=== PATIENT | female | born 1995 | race Two or more races ===

== ENCOUNTER 2019-03-13 10:53 | Emergency (ER) | payer OTHER ==
[~2019-03-13] VITALS: Ht 167.6 cm; Wt 57.2 kg
[2019-03-13 11:08] VITALS: BP 112/45
[2019-03-13 11:34] LABS: BASO % 0 % (0-3); EOS # 0.1 x10^3/uL (0.0-0.7); EOS % 1 % (0-3); HEMATOCRIT 36.9 % (36.0-47.0); LYMPH # 1.6 x10^3/uL (1.0-4.8); LYMPH % 31 % (24-48); MEAN CORPUSCULAR HEMOGLOBIN 28 pg (25-35); MEAN CORPUSCULAR HGB CONC 33 g/dL (31-37); MEAN CORPUSCULAR VOLUME 86 fL (79-100); MONO # 0.3 x10^3/uL (0.0-1.1); MONO % 5 % (0-9); NEUT # 3.2 x10^3uL (1.8-7.7); NEUT % 62 % (31-73); PLATELET COUNT 254 x10^3/uL (140-400); RED BLOOD COUNT 4.28 x10^6/uL (3.50-5.40); RED CELL DISTRIBUTION WIDTH 14.5 % (11.5-14.5); WHITE BLOOD COUNT 5.1 x10^3/uL (4.0-11.0)
--- NOTE | 2019-03-13 12:09 | RAD ---
OB <14 WKS History: Vaginal bleeding. 7 weeks . Comparison: None. Technique: Grayscale and color Doppler imaging of the pelvis was performed using transabdominal technique. Findings: The uterus measures 8.9 x 5.1 x 6.3 cm in length. Small gestational sac within the upper endometrial canal measures 0.67 cm. Estimated gestational age by ultrasound 5 weeks 3 days. No pole is identified. No yolk sac. Right ovary measures 3.4 x 2.2 x 3.2 cm and is unremarkable. Left ovary measures 3.4 x 2.5 x 3.9 cm. Dominant left ovarian follicle.. No adnexal masses are seen. Small amount of posterior cul-de-sac fluid, likely physiologic. IMPRESSION: 1. Small intrauterine gestational sac with estimated gestational age 5 weeks 3 days. No pole, likely related to early . Recommend short-term interval ultrasound follow-up and correlation with serial beta-hCGs. Electronically signed by: Oswaldo Hancock DO (03/13/2019 12:07 PM) [facility]
--- NOTE | 2019-03-13 13:22 | PHYS DOC ---
Past History Past Medical History: No Pertinent History Past Surgical History: No Surgical History Alcohol Use: None Drug Use: None Adult General Chief Complaint Chief Complaint: VAGINAL BLEEDING HPI HPI Patient is a 22-year-old female presenting with vaginal spotting. Has had 2 episodes of vaginal spotting one was more significant amount of couple of days ago and this morning he noticed spotting when she was wiping. No abdominal pain she is worried because she is about 6 weeks last menstrual period January 28 and she notes 2 prior miscarriages. She is B+ she tells me Review of Systems Review of Systems Constitutional: Denies fever or chills [] Eyes: Denies change in visual acuity, redness, or eye pain [] HENT: Denies nasal congestion or sore throat [] Respiratory: Denies cough or shortness of breath [] Musculoskeletal: Denies back pain or joint pain [] Integument: Denies rash or skin lesions [] Neurologic: Denies headache, focal weakness or sensory changes [] Endocrine: Denies polyuria or polydipsia [] All other systems were reviewed and found to be within normal limits, except as documented in this note. Allergies Allergies Allergies Coded Allergies Type Severity Reaction Last Updated Verified No Known Drug Allergies 03/13/19 No Physical Exam Physical Exam Constitutional: Well developed, well nourished, no acute distress, non-toxic appearance. [] HENT: Normocephalic, atraumatic, bilateral external ears normal, oropharynx moist, no oral exudates, nose normal. [] Eyes: PERRLA, EOMI, conjunctiva normal, no discharge. [] Neck: Normal range of motion, no tenderness, supple, no stridor. [] Cardiovascular:Heart rate regular rhythm, no murmur [] Lungs & Thorax: Bilateral breath sounds clear to auscultation [] Abdomen: Bowel sounds normal, soft, no tenderness, no masses, no pulsatile masses. [] Skin: Warm, dry, no erythema, no rash. [] Back: No tenderness, no CVA tenderness. [] Extremities: No tenderness, no cyanosis, no clubbing, ROM intact, no edema. [] Neurologic: Alert and oriented X 3, normal motor function, normal sensory function, no focal deficits noted. [] Psychologic: Affect normal, judgement normal, mood normal. [] Current Patient Data Vital Signs Vital Signs Date Time Temp Pulse Resp B/P (MAP) Pulse Ox O2 Delivery O2 Flow Rate FiO2 03/13/19 11:08 98.1 70 16 100 Room Air eks . Pt staetd I am G4=P1. Pt stated I have had two mischarges. Pt stated I am having some vaginavl bleeding and spotting. Distress * Mild Temperature (Fahrenheit): * 98.1 degrees F (97.6-99.5) Patient Temperature * 98.1 degrees F (97.5-99.5) Temperature Source * Oral Blood Pressure Systolic * 112 mm Hg (100-140) Blood Pressure Diastolic * 45 mm Hg (60-100) L Blood Pressure Mean * 67 mm Hg Blood Pressure Location * Left Arm Blood Pressure Source * Automatic Cuff Pulse Rate * 70 beats per minute (60-90) Pulse Assessment Method * NIBP Respiratory Rate * 16 breaths per minute (12-24) Oxygen Delivery Method * Room Air Bedside Pulse Oximetry * 100 % Treatment Prior to Arrival * No Complaint of Pain * No Pain Scale Type * Numeric LOC Lab Results Laboratory Tests Test 03/13/19 11:19 White Blood Count 5.1 x10^3/uL (4.0-11.0) Red Blood Count 4.28 x10^6/uL (3.50-5.40) Hemoglobin 12.0 g/dL (12.0-15.5) Hematocrit 36.9 % (36.0-47.0) Mean Corpuscular Volume 86 fL (79-100) Mean Corpuscular Hemoglobin 28 pg (25-35) Mean Corpuscular Hemoglobin Concent 33 g/dL (31-37) Red Cell Distribution Width 14.5 % (11.5-14.5) Platelet Count 254 x10^3/uL (140-400) Neutrophils (%) (Auto) 62 % (31-73) Lymphocytes (%) (Auto) 31 % (24-48) Monocytes (%) (Auto) 5 % (0-9) Eosinophils (%) (Auto) 1 % (0-3) Basophils (%) (Auto) 0 % (0-3) Neutrophils # (Auto) 3.2 x10^3uL (1.8-7.7) Lymphocytes # (Auto) 1.6 x10^3/uL (1.0-4.8) Monocytes # (Auto) 0.3 x10^3/uL (0.0-1.1) Eosinophils # (Auto) 0.1 x10^3/uL (0.0-0.7) Basophils # (Auto) 0.0 x10^3/uL (0.0-0.2) Maternal Serum HCG Beta Subunit 6221 mIU/mL (0-6) H EKG EKG [] Radiology/Procedures Radiology/Procedures [] Impressions: IMPRESSION: 1. Small intrauterine gestational sac with estimated gestational age 5 weeks 3 days. No pole, likely related to early . Recommend short-term interval ultrasound follow-up and correlation with serial beta-hCGs. Electronically signed by: Odell Traylor DO (03/13/2019 12:07 PM) [facility] DICTATED AND SIGNED BY: ODELL TRAYLOR DO DATE: 03/13/19 1207 CC: SARAH FELIZ MD; PCP,UNKNOWN ~ Course & Med Decision Making Course & Med Decision Making Pertinent Labs and Imaging studies reviewed. (See chart for details) []23 old female presenting with vaginal spotting early first trimester noted the ultrasound and the beta results. Patient is very well-appearing hemodynamically stable benign abdominal examination recommended follow-up with gynecology within 3-5 days for repeat beta and ultrasound to confirm that this is a normal developing. Dragon Disclaimer Dragon Disclaimer This electronic medical record was generated, in whole or in part, using a voice recognition dictation system. Departure Departure: Impression: Primary Impression: Vaginal bleeding during Disposition: 01 HOME, SELF-CARE Condition: STABLE Patient Instructions: Vaginal Bleeding During , First Trimester Additional Instructions: please see your designer writer doctor for repeat ultrasound or blood work in 3-5 days. SARAH FELIZ MD Mar 13, 2019 13:22
== END 2019-03-13 12:27 | disposition home or self-care (01) ==
LOC: ER 10:53
DX: O46.91 Antepartum hemorrhage, unspecified, first trimester (principal); Z3A.01 Less than 8 weeks gestation of pregnancy
CPT/HCPCS: 36415; 76801; 84702; 85025; 99285-25

== ENCOUNTER 2019-03-28 07:40 | Emergency (ER) | payer OTHER ==
[~2019-03-28] VITALS: Ht 167.6 cm; Wt 56.2 kg
[2019-03-28 07:45] VITALS: BP 120/72
[2019-03-28] MEDS ORDERED: ONDANSETRON ODT 4 MG TAB.RAPDIS ONE (07:55)
[2019-03-28] MEDS ORDERED: ONDANSETRON ODT 4 MG TAB.RAPDIS PO ONE (08:00)
[2019-03-28 08:39] LABS: BACTERIA,URINE FEW /HPF (0-FEW); BILIRUBIN,URINE NEG (NEG); CLARITY,URINE HAZY; COLOR,URINE AMBER; GLUCOSE,URINE NEG (NEG); NITRITE,URINE NEG (NEG); RBC,URINE OCC /HPF (0-2); SQUAMOUS EPITHELIAL CELL,UR MOD /LPF; UROBILINOGEN,URINE 0.2 mg/dL (0.2 mg/dL)
[2019-03-28] MEDS ORDERED: ONDA4TAB12 PO (08:49)
--- NOTE | 2019-03-28 09:00 | PHYS DOC ---
Past History Past Medical History: No Pertinent History Past Surgical History: No Surgical History Alcohol Use: None Drug Use: None Adult General Chief Complaint Chief Complaint: VOMITING IN HPI HPI Patient is a 23 yo f p/w n/v/d. Vomiting profusely since midnight also had some diarrhea yesterday daughter was sick with the same symptoms patient is 7 weeks and has no fever. Did have some spotting on saw her doctor had ultrasound and everything looked good at that time. No further bleeding this morning patient describes a sensation of abdominal gurgling but no sharp pain Review of Systems Review of Systems Constitutional: Denies fever or chills [] Eyes: Denies change in visual acuity, redness, or eye pain [] HENT: Denies nasal congestion or sore throat [] Respiratory: Denies cough or shortness of breath [] Cardiovascular: Integument: Denies rash or skin lesions [] Neurologic: Denies headache, focal weakness or sensory changes [] All other systems were reviewed and found to be within normal limits, except as documented in this note. Current Medications Current Medications Current Medications Medications (Trade) Dose Ordered Sig/Soo Start Time Stop Time Status Last Admin Dose Admin Ondansetron HCl (Zofran Odt) 4 mg STK-MED ONCE 03/28/19 07:55 03/28/19 07:55 DC Allergies Allergies Allergies Coded Allergies Type Severity Reaction Last Updated Verified No Known Drug Allergies 03/13/19 No Physical Exam Physical Exam Constitutional: Well developed, well nourished, no acute distress, non-toxic appearance. [] HENT: Normocephalic, atraumatic, bilateral external ears normal, oropharynx moist, no oral exudates, nose normal. [] Eyes: PERRLA, EOMI, conjunctiva normal, no discharge. [] Neck: Normal range of motion, no tenderness, supple, no stridor. [] Pulmonary: Normal respiratory effort no increased work of breathing no obvious chest wall trauma Abdomen: Bowel sounds normal, soft, no tenderness, no masses, no pulsatile masses. [] Skin: Warm, dry, no erythema, no rash. [] Back: No tenderness, no CVA tenderness. [] Extremities: No tenderness, no cyanosis, no clubbing, ROM intact, no edema. [] Neurologic: Alert and oriented X 3, normal motor function, normal sensory function, no focal deficits noted. [] Psychologic: Affect normal, judgement normal, mood normal. [] Current Patient Data Vital Signs Vital Signs Date Time Temp Pulse Resp B/P (MAP) Pulse Ox O2 Delivery O2 Flow Rate FiO2 03/28/19 07:40 98.7 77 18 120/72 (88) 100 Room Air Lab Results Laboratory Tests Test 03/28/19 08:13 Urine Collection Type Unknown Urine Color Natalie Urine Clarity Hazy Urine pH 5.5 Urine Specific [place] >=1.030 Urine Protein Neg (NEG-TRACE) Urine Glucose (UA) Neg mg/dL (NEG) Urine Ketones (Stick) Neg mg/dL (NEG) Urine Blood Neg (NEG) Urine Nitrite Neg (NEG) Urine Bilirubin Neg (NEG) Urine Urobilinogen Dipstick 0.2 mg/dL (0.2 mg/dL) Urine Leukocyte Esterase Trace (NEG) Urine RBC Occ /HPF (0-2) Urine WBC 1-4 /HPF (0-4) Urine Squamous Epithelial Cells Mod /LPF Urine Bacteria Few /HPF (0-FEW) Urine Mucus Mod /LPF EKG EKG [] Radiology/Procedures Radiology/Procedures [] Course & Med Decision Making Course & Med Decision Making Pertinent Labs and Imaging studies reviewed. (See chart for details) []Patient was improved in the emergency room after oral Zofran urinalysis negative for infection vitals normal discharge in stable condition abdomen was benign and nontender Dragon Disclaimer Dragon Disclaimer This electronic medical record was generated, in whole or in part, using a voice recognition dictation system. Departure Departure: Impression: Primary Impression: Vomiting Disposition: 01 HOME, SELF-CARE Condition: STABLE Patient Instructions: Nausea and Vomiting, [id number] Scripts Ondansetron (ONDANSETRON ODT) 4 Mg Tab.rapdis 1 TAB PO PRN Q6-8HRS PRN for PAIN, #16 TAB Prov: SARAH FELIZ MD 03/28/19 SARAH FELIZ MD Mar 28, 2019 09:00
== END 2019-03-28 09:00 | disposition home or self-care (01) ==
LOC: ER 07:40
DX: O21.9 Vomiting of pregnancy, unspecified (principal); R19.7 Diarrhea, unspecified; Z3A.01 Less than 8 weeks gestation of pregnancy
CPT/HCPCS: 81001; 87086; 99283; Q0162

== ENCOUNTER 2020-11-30 16:34 | Emergency (ER) | payer OTHER ==
[~2020-11-30] VITALS: Ht 160 cm; Wt 56.8 kg
[~2020-11-30 16:34] MED LIST: ONDA4TAB12 PO
[2020-11-30 17:30] LABS: BILIRUBIN,URINE NEG (NEG); CLARITY,URINE HAZY; COLOR,URINE YELLOW; GLUCOSE,URINE NEG (NEG); NITRITE,URINE NEG (NEG)
[2020-11-30 17:33] LABS: BACTERIA,URINE 0 /HPF (0-FEW); RBC,URINE 0 /HPF (0-2); SQUAMOUS EPITHELIAL CELL,UR FEW /LPF; WBC,URINE 0 /HPF (0-4)
--- NOTE | 2020-11-30 17:47 | PHYS DOC ---
Past History Past Medical History: No Pertinent History (CANDACE DAMIAN APRN) Past Surgical History: Other Additional Past Surgical Histo: D&C (CANDACE DAMIAN APRN) Alcohol Use: None Drug Use: None (CANDACE DAMIAN APRN) General Adult EDM: Chief Complaint: VAGINAL BLEEDING HPI: HPI: Patient is a 25-year-old female who presents with vaginal bleeding while . Patient states that she took a test last week which was negative. "On Saturday started bleeding and he assumed I was only., But on Saturday the bleeding had quit so I took 2 more test which were both positive". "I also had quite a bit of cramping on Saturday". Last menstrual period was 10/21. G5, P2. Denies medical history. (CANDACE DAMIAN APRN) Review of Systems: Review of Systems: Constitutional: Denies fever and chills Eyes: Denies change in visual acuity HENT: Denies nasal congestion or sore throat Respiratory: Denies cough or shortness of breath Cardiovascular: Denies chest pain or edema GI: Reports abdominal cramping. Denies nausea or/vomiting /Vaginal: Reports vaginal bleeding while . Denies vaginal discharge or odor Musculoskeletal: Denies back pain or joint pain Integument: Denies rash Neurologic: Denies headache, focal weakness or sensory changes Endocrine: Denies polyuria or polydipsia Lymphatic: Denies swollen glands Psychiatric: Denies depression or anxiety (CANDACE DAMIAN APRN) Allergies: Allergies: Allergies Coded Allergies Type Severity Reaction Last Updated Verified No Known Drug Allergies 03/13/19 No (CANDACE DAMIAN APRN) Physical Exam: PE: Constitutional: Well developed, well nourished, no acute distress, non-toxic appearance. [] HENT: Normocephalic, atraumatic, bilateral external ears normal, oropharynx moist, no oral exudates, nose normal. [] Eyes: PERRLA, EOMI, conjunctiva normal, no discharge. [] Neck: Normal range of motion, no tenderness, supple, no stridor. [] Cardiovascular:Heart rate regular rhythm, no murmur [] Lungs & Thorax: Bilateral breath sounds clear to auscultation [] Abdomen: Bowel sounds normal, soft, no tenderness, no masses, no pulsatile masses. [] Skin: Warm, dry, no erythema, no rash. [] Back: No tenderness, no CVA tenderness. [] Extremities: No tenderness, no cyanosis, no clubbing, ROM intact, no edema. [] Neurologic: Alert and oriented X 3, normal motor function, normal sensory function, no focal deficits noted. [] Psychologic: Affect normal, judgement normal, mood normal. [] (CANDACE DAMIAN APRN) Current Patient Data: Labs: Laboratory Tests Test 11/30/20 17:14 POC Urine HCG, Qualitative hcg positive (Negative) Vital Signs: Vital Signs Date Time Temp Pulse Resp B/P (MAP) Pulse Ox O2 Delivery O2 Flow Rate FiO2 11/30/20 17:12 98.0 77 16 105/76 100 Room Air (CANDACE DAMIAN APRN) EKG: EKG: [] (CANDACE DAMIAN APRN) Radiology/Procedures: Radiology/Procedures: []Obstetric ultrasound less than 14 weeks with transvaginal: Reason for examination: Vaginal bleeding with . Transabdominal and transvaginal ultrasound examination of the pelvis was performed. Uterus measures 10.0 x 5.7 cm in greatest dimensions. No uterine mass is seen. Cervix length is normal at 4.7 cm. The endometrium is not thickened at 9 mm. No intrauterine or ectopic gestation is identified. Right ovary measures 3.3 x 1.8 x 1.9 cm in greatest dimension and shows good vascular flow and no mass. Left ovary measures 3.2 x 2.7 x 1.8 cm in greatest dimension and shows good vascular flow and no mass. No free fluid is identified in the pelvis. IMPRESSION: No evidence of intrauterine or ectopic gestation. Recommend clinical correlation and follow-up. Electronically signed by: Tiarra Nassar MD (11/30/2020 5:56 PM) [facility] (CANDACE DAMIAN APRN) Heart Score: C/O Chest Pain: No Risk Factors: Risk Factors: DM, Current or recent (<one month) smoker, HTN, HLP, family his tory of CAD, obesity. Risk Scores: Score 0 - 3: 2.5% MACE over next 6 weeks - Discharge Home Score 4 - 6: 20.3% MACE over next 6 weeks - Admit for Clinical Observation Score 7 - 10: 72.7% MACE over next 6 weeks - Early Invasive Strategies (CANDACE DAMIAN APRN) Course & Med Decision Making: Course & Med Decision Making Pertinent Labs and Imaging studies reviewed. (See chart for details) [] 25-year-old female presents with vaginal bleeding while . Patient denies pain. Last menstrual period. Was 10/21. G5, P2. Urine preg was positive. Ultrasound shows No evidence of intrauterine or ectopic gestation. Instructed patient to make a follow-up appointment with EQUINE MANAGER OR return to the emergency room for repeat quant levels in 48 hours. Current beta-hCG levels are 39. All labs unremarkable. Patient given strict return precautions for increasing pain, bleeding. (CANDACE DAMIAN APRN) Course & Med Decision Making Did not see or evaluate patient. Agree with CELL INSPECTOR's work-up and disposition per note (ROJAS COOK MD) Dragon Disclaimer: Dragon Disclaimer: This electronic medical record was generated, in whole or in part, using a voice recognition dictation system. (CANDACE DAMIAN APRN) Departure Departure: Impression: Primary Impression: Vaginal bleeding during Disposition: HOME / SELF CARE / HOMELESS Condition: STABLE Referrals: MANUEL FLORES DO (PCP) Patient Instructions: Vaginal Bleeding During , [id number] Additional Instructions: You were seen in the emergency room for vaginal bleeding while . The ultrasound was negative for ectopic but did not see a intrauterine at this time and could be because it is too soon. Please follow-up with EQUINE MANAGER or return to the ER for repeat beta quant levels. Your current levels were 39. Return to the emergency room if you have an increase in pain or bleeding. EMERGENCY DEPARTMENT GENERAL DISCHARGE INSTRUCTIONS Thank you for coming to [facility] (ED) today and trusting us with you care. We trust that you had a positivie experience in our Emergency Department. If you wish to speak to the department management, you may call the director at [phone]. YOUR FOLLOW UP INSTRUCTIONS ARE FOLLOWS: 1. Do you have a private Doctor? If you do not have a private doctor, please ask for a resource list of physicians or clinics that may be able to assist you with follow up care. 2. The Emergency Physician has interpreted your x-rays. The X-Ray specialist will also review them. If there is a change in the findings, you will be notified in 48 hours when at all possible. 3. A lab test or culture has been done, your results will be reviewed and you will be notified if you need a change in treatment. ADDITIONAL INSTRUCTIONS AND INFORMATION: 1. Your care today has been supervised by a physician who is specially trained in emergency care. Many problems require more than one evaluation for a complete diagnosis and treatment. We recommend that you schedule your follow up appointment as recommended to ensure complete treatment of you illness or injury. If you are unable to obtain follow up care and continue to have a problem, or if your condition worsens, we recommend that you return to the ED. 2. We are not able to safely determine your condition over the phone nor are we able to give sound medical advice over the phone. For these safety reasons, if you call for medical advice we will ask you to come to the ED for further evaluation. 3. If you have any questions regarding these discharge instructions please call the ED at [phone]. SAFETY INFORMATION: In the interest of safety, wellness, and injury prevention; we encourage you to wear your sealbelt, if you smoke; quite smoking, and we encourage family to use a protective helmet for bicycling and other sporting events that present an increased risk for head injury. IF YOUR SYMPTOMS WORSEN OR NEW SYMPTOMS DEVELOP, OR YOU HAVE CONCERNS ABOUT YOUR CONDITION; OR IF YOUR CONDITION WORSENS WHILE YOU ARE WAITING FOR YOUR FOLLOW UP APPOINTMENT; EITHER CONTACT YOUR PRIMARY CARE DOCTOR, THE PHYSICIAN WHOSE NAME AND NUMBER YOU WERE GIVEN, OR RETURN TO THE ED IMMEDIATELY. CANDACE DAMIAN APRN Nov 30, 2020 17:47 ROJAS COOK MD Dec 01, 2020 00:39
--- NOTE | 2020-11-30 17:58 | RAD ---
Obstetric ultrasound less than 14 weeks with transvaginal: Reason for examination: Vaginal bleeding with . Transabdominal and transvaginal ultrasound examination of the pelvis was performed. Uterus measures 10.0 x 5.7 cm in greatest dimensions. No uterine mass is seen. Cervix length is gracie l at 4.7 cm. The endometrium is not thickened at 9 mm. No intrauterine or ectopic gestation is identi fied. Right ovary measures 3.3 x 1.8 x 1.9 cm in greatest dimension and shows good vascular flow and no mas s. Left ovary measures 3.2 x 2.7 x 1.8 cm in greatest dimension and shows good vascular flow and no mass . No free fluid is identified in the pelvis. IMPRESSION: No evidence of intrauterine or ectopic gestation. Recommend clinical correlation and follow-up. Electronically signed by: Tiarra Nassar MD (11/30/2020 5:56 PM) [facility]
[2020-11-30 18:09] LABS: BASO % 0 % (0-3); EOS # 0.1 x10^3/uL (0.0-0.7); EOS % 2 % (0-3); HEMATOCRIT 37.1 % (36.0-47.0); HEMOGLOBIN 12.5 g/dL (12.0-15.5); LYMPH # 1.6 x10^3/uL (1.0-4.8); LYMPH % 25 % (24-48); MEAN CORPUSCULAR HEMOGLOBIN 30 pg (25-35); MEAN CORPUSCULAR HGB CONC 34 g/dL (31-37); MEAN CORPUSCULAR VOLUME 88 fL (79-100); MONO # 0.4 x10^3/uL (0.0-1.1); MONO % 6 % (0-9); NEUT # 4.4 x10^3uL (1.8-7.7); NEUT % 68 % (31-73); PLATELET COUNT 288 x10^3/uL (140-400); RED BLOOD COUNT 4.21 x10^6/uL (3.50-5.40); RED CELL DISTRIBUTION WIDTH 13.5 % (11.5-14.5); WHITE BLOOD COUNT 6.5 x10^3/uL (4.0-11.0)
[2020-11-30 18:16] LABS: CALCIUM 8.7 mg/dL (8.5-10.1); CREATININE 0.8 mg/dL (0.6-1.0); GFR 86.7; POTASSIUM 3.9 mmol/L (3.5-5.1)
[2020-11-30 18:23] LABS: ALBUMIN/GLOBULIN RATIO 1.2 (1.0-1.7); TOTAL BILIRUBIN 1.1 mg/dL (0.2-1.0); TOTAL PROTEIN 7.4 g/dL (6.4-8.2)
[2020-11-30 18:58] VITALS: BP 116/73
== END 2020-11-30 19:10 | disposition home or self-care (01) ==
LOC: ER 16:34
DX: O46.91 Antepartum hemorrhage, unspecified, first trimester (principal); Z3A.01 Less than 8 weeks gestation of pregnancy
CPT/HCPCS: 36415; 76801; 76817; 80053; 81001; 81025; 84702; 85025; 86850; 86900; 86901; 99284

== ENCOUNTER 2021-06-23 17:51 | Emergency (ER) | payer OTHER ==
[~2021-06-23] VITALS: Ht 160 cm; Wt 56.0 kg
[2021-06-23] MEDS ORDERED: IV NORMAL SALINE 1,000ML 1,000 ML IV ONE (18:15)
[2021-06-23 18:18] VITALS: BP 111/64
--- NOTE | 2021-06-23 18:22 | PHYS DOC ---
Past History Past Medical History: No Pertinent History (STEFFEN LEVI APRN) Past Surgical History: Other Additional Past Surgical Histo: D&C (STEFFEN LEVI APRN) Alcohol Use: None Drug Use: None (STEFFEN LEVI APRN) General Adult EDM: Chief Complaint: VAGINAL BLEEDING HPI: HPI: Patient is a 25-year-old female who presents to the emergency department for vaginal bleeding and . Patient reports that she has had spotting for the last 3 weeks that has improved. She reports the vaginal bleeding is light red to brown in color. There are no clots. She is not saturating any pads. Her last menstrual period was April 27. Her SALON ASSISTANT is Dr. Milligan. She reports nausea without vomiting, denies abdominal pain. She reports prior to the vaginal spotting she did have sexual intercourse. Patient has no STI concern. She denies any vaginal discharge, itching or odor. G5, P2 with hi story of miscarriage. (STEFFEN LEVI APRN) Review of Systems: Review of Systems: GI: See HPI : See HPI Musculoskeletal: Denies flank pain (STEFFEN LEVI APRN) Current Medications: Current Meds: Current Medications Medications (Trade) Dose Ordered Sig/Soo Start Time Stop Time Status Last Admin Dose Admin Sodium Chloride 1,000 ml @ 1,000 mls/hr 1X ONCE 06/23/21 18:15 06/23/21 19:14 UNV (STEFFEN LEVI APRN) Allergies: Allergies: Allergies Coded Allergies Type Severity Reaction Last Updated Verified No Known Drug Allergies 03/13/19 No (STEFFEN LEVI APRN) Physical Exam: PE: Constitutional: Well developed, well nourished, no acute distress, non-toxic appearance. [] HENT: Normocephalic, atraumatic, bilateral external ears normal, oropharynx moist, no oral exudates, nose normal. [] Eyes: PERRL, EOMI, conjunctiva normal, no discharge. [] Neck: Normal range of motion, no stridor Cardiovascular:Heart rate regular rhythm, no murmur [] Lungs & Thorax: Bilateral breath sounds clear to auscultation [] Abdomen: Bowel sounds normal, soft, no tenderness, abdominal rigidity or guarding, negative Smith sign, no rebound tenderness, no masses, no pulsatile masses. [] Skin: Warm, dry, no erythema, no rash. [] Back: Normal range of motion Extremities: No tenderness, no cyanosis, no clubbing, ROM intact, no edema. [] Neurologic: Alert and oriented X 3, normal motor function, normal sensory function, no focal deficits noted. [] Psychologic: Affect normal, judgement normal, mood normal. [] (STEFFEN LEVI APRN) Current Patient Data: Labs: Laboratory Tests Test 06/23/21 18:08 06/23/21 18:20 06/23/21 18:32 Urine Collection Type Clean catch Urine Color Yellow Urine Clarity Hazy Urine pH 6.0 Urine Specific [place] 1.025 Urine Protein Neg Urine Glucose (UA) Neg mg/dL Urine Ketones (Stick) Neg mg/dL Urine Blood Mod Urine Nitrite Neg Urine Bilirubin Neg Urine Urobilinogen Dipstick 0.2 mg/dL Urine Leukocyte Esterase Mod Urine RBC 6-10 /HPF Urine WBC 11-20 /HPF Urine Squamous Epithelial Cells Many /LPF Urine Bacteria Few /HPF Bedside Urine HCG, Qualitative hcg positive White Blood Count 5.5 x10^3/uL Red Blood Count 4.01 x10^6/uL Hemoglobin 11.9 g/dL Hematocrit 35.6 % Mean Corpuscular Volume 89 fL Mean Corpuscular Hemoglobin 30 pg Mean Corpuscular Hemoglobin Concent 33 g/dL Red Cell Distribution Width 13.5 % Platelet Count 263 x10^3/uL Neutrophils (%) (Auto) 62 % Lymphocytes (%) (Auto) 30 % Monocytes (%) (Auto) 7 % Eosinophils (%) (Auto) 1 % Basophils (%) (Auto) 0 % Neutrophils # (Auto) 3.4 x10^3uL Lymphocytes # (Auto) 1.7 x10^3/uL Monocytes # (Auto) 0.4 x10^3/uL Eosinophils # (Auto) 0.1 x10^3/uL Basophils # (Auto) 0.0 x10^3/uL Maternal Serum HCG Beta Subunit [id number] mIU/mL Sodium Level 134 mmol/L Potassium Level 3.8 mmol/L Chloride Level 100 mmol/L Carbon Dioxide Level 26 mmol/L Anion Gap 8 Blood Urea Nitrogen 17 mg/dL Creatinine 0.5 mg/dL Estimated GFR (Cockcroft-Gault) 149.1 Glucose Level 90 mg/dL Calcium Level 8.9 mg/dL Current Medications Medications (Trade) Dose Ordered Sig/Soo Route PRN Reason Start Time Stop Time Status Last Admin Dose Admin Sodium Chloride 1,000 ml @ 1,000 mls/hr 1X ONCE IV 06/23/21 18:15 06/23/21 19:14 DC 06/23/21 18:15 (STEFFEN LEVI APRN) EKG: EKG: [] (STEFFEN LEVI APRN) Radiology/Procedures: Radiology/Procedures: Pelvic exam: external genitalia: no redness/wounds/lesions noted speculum exam: brown vaginal bleeding, no foreign bodies noted, cultures obtained, no tenderness[] (STEFFEN LEVI APRN) Heart Score: C/O Chest Pain: N/A Risk Factors: Risk Factors: DM, Current or recent (<one month) smoker, HTN, HLP, family history of CAD, obesity. Risk Scores: Score 0 - 3: 2.5% MACE over next 6 weeks - Discharge Home Score 4 - 6: 20.3% MACE over next 6 weeks - Admit for Clinical Observation Score 7 - 10: 72.7% MACE over next 6 weeks - Early Invasive Strategies (STEFFEN LEVI APRN) Course & Med Decision Making: Course & Med Decision Making Pertinent Labs and Imaging studies reviewed. (See chart for details) [] Patient presents to the emergency department for vaginal spotting and that has been going on for 3 weeks. Last menstrual period April 27. Approximately 8 weeks . Patient denies any abdominal pain, urinary symptoms, vaginal discharge, vaginal itching or odor. Work-up in the ER consisted of blood work, urinalysis and ultrasound. CBC and BMP were unremarkable. Urinalysis showed a urinary tract infection. Patient's blood type is B+, she is not require RhoGam. Ultrasound shows an intrauterine sac and pole measuring 7 weeks and 3 days, heart rates 162 with good blood flow to both ovaries. Her beta quant is [id number]. Patient will be treated with an antibiotic for her UTI and metronidazole for bacterial vaginosis. She is advised to follow-up with her SALON ASSISTANT. I discussed with patient all findings and diagnostic testing as well as the need to follow-up with PCP for further evaluation and treatment or return to the ER if any new or worsening symptoms. Strict return precautions were also discussed at length. Patient voiced understanding and agreement with the plan. Patient is hemodynamically stable at the time of disposition. (STEFFEN LEVI APRN) Dragon Disclaimer: Dragon Disclaimer: This electronic medical record was generated, in whole or in part, using a voice recognition dictation system. (STEFFEN LEVI APRN) Departure Departure: Impression: Primary Impression: Vaginal bleeding during Disposition: HOME / SELF CARE / HOMELESS Condition: GOOD Referrals: DAMIAN GERARD APRN (PCP) Patient Instructions: ABCs of , Vaginal Bleeding During , First Trimester Additional Instructions: You were seen in the emergency department today for vaginal bleeding and . You were noted to have a urinary tract infection which will be treated with an antibiotic. Please start and finish the antibiotic completely. Increase your fluids and avoid any bladder irritants like caffeine and sugary beverages. You are also noted to be positive for bacterial vaginosis which is an overgrowth of our normal bacteria in her vagina. This will be treated with metronidazole. You were noted to have an intrauterine sac measuring 7 weeks and 3 days. Your beta hCG level was [id number]. Please follow-up with your SALON ASSISTANT in 2 days to have this level rechecked. Return to the emergency department if you develop worsening of your vaginal bleeding where you are saturating more than 1 pad an hour, abdominal pain, intractable nausea or vomiting, high fevers refractory to treatment or any new or worsening concerns. Scripts Metronidazole (METRONIDAZOLE) 500 Mg Tablet 1 TAB PO BID for bacterial infection for 7 Days, #14 TAB 0 Refills Prov: STEFFEN LEVI APRN 06/23/21 Cephalexin (KEFLEX) 500 Mg Capsule 1 CAP PO TID for uti for 7 Days, #21 CAP 0 Refills Prov: STEFFEN LEVI APRN 06/23/21 Attending Signature Attending Signature I have participated in the care of this patient and I have reviewed and agree with all pertinent clinical information above including history, exam, and recommendations. (MICHELLE HERMAN MD) Dragon Disclaimer This chart was dictated in whole or in part using Voice Recognition software in a busy, high-work load, and often noisy Emergency Department environment. It may contain unintended and wholly unrecognized errors or omissions. (MICHELLE HERMAN MD) STEFFEN LEVI APRN Jun 23, 2021 18:22 MICHELLE HERMAN MD Jun 25, 2021 05:30
[2021-06-23 18:40] LABS: CLARITY,URINE HAZY; COLOR,URINE YELLOW
[2021-06-23 18:41] LABS: BACTERIA,URINE FEW /HPF (0-FEW); GLUCOSE,URINE NEG (NEG); NITRITE,URINE NEG (NEG); SQUAMOUS EPITHELIAL CELL,UR MANY /LPF; UROBILINOGEN,URINE 0.2 mg/dL (0.2 mg/dL)
[2021-06-23 19:04] LABS: BASO % 0 % (0-3); EOS # 0.1 x10^3/uL (0.0-0.7); EOS % 1 % (0-3); HEMATOCRIT 35.6 % (36.0-47.0); HEMOGLOBIN 11.9 g/dL (12.0-15.5); LYMPH # 1.7 x10^3/uL (1.0-4.8); LYMPH % 30 % (24-48); MEAN CORPUSCULAR HEMOGLOBIN 30 pg (25-35); MEAN CORPUSCULAR HGB CONC 33 g/dL (31-37); MEAN CORPUSCULAR VOLUME 89 fL (79-100); MONO # 0.4 x10^3/uL (0.0-1.1); MONO % 7 % (0-9); NEUT # 3.4 x10^3uL (1.8-7.7); NEUT % 62 % (31-73); PLATELET COUNT 263 x10^3/uL (140-400); RED BLOOD COUNT 4.01 x10^6/uL (3.50-5.40); RED CELL DISTRIBUTION WIDTH 13.5 % (11.5-14.5); WHITE BLOOD COUNT 5.5 x10^3/uL (4.0-11.0)
[2021-06-23 19:24] LABS: CALCIUM 8.9 mg/dL (8.5-10.1); CREATININE 0.5 mg/dL (0.6-1.0); GFR 149.1; POTASSIUM 3.8 mmol/L (3.5-5.1)
--- NOTE | 2021-06-23 20:25 | RAD ---
INDICATION: Reason: vaginal bleeding in , COMPARISON: November 2020 TECHNIQUE: Grayscale and color ultrasound images of the pelvis. Transvaginal images are obtained. FINDINGS: Uterus: 85 x 75 x 49 mm. Intrauterine gestational sac is seen and unremarkable. Too early in gestation to adequately assess p lacenta. pole seen. CRL: 12 mm. Estimated Gestational Age: 7 weeks and 3 days Heart Beat: 162 Right Ovary: 41 x 30 x 24 mm. Left Ovary: 35 x 35 x 20 mm. Vascular flow identified to bilateral ovaries. IMPRESSION: * Intrauterine is seen with positive heart beat. * Recommend routine anomaly screening at 18-22 weeks. Electronically signed by: Pedro Mathis MD (06/23/2021 8:23 PM) [id number]
[2021-06-23] MEDS ORDERED: METR-34 PO (21:03)
[2021-06-23] MEDS ORDERED: CEPH500C PO (21:03)
[2021-06-26 20:07] LABS: CHLAMYDIA PROBE Negative (Negative)
== END 2021-06-23 21:25 | disposition home or self-care (01) ==
LOC: ER 17:51
DX: O46.91 Antepartum hemorrhage, unspecified, first trimester (principal); Z3A.08 8 weeks gestation of pregnancy
CPT/HCPCS: 36415; 76801; 76817; 80048; 81001; 81025; 84702; 85025; 86900; 86901; 87086; 87491; 87591; 96360; 99284; J7030; Q0111

== ENCOUNTER 2021-07-13 18:40 | Emergency (ER) | payer OTHER ==
[~2021-07-13] VITALS: Ht 160 cm; Wt 56.3 kg
[~2021-07-13 18:40] MED LIST changes: +CEPH500C PO; +METR-34 PO
[2021-07-13] MEDS ORDERED: ONDANSETRON ODT 4 MG TAB.RAPDIS PO ONE (19:15)
--- NOTE | 2021-07-13 19:25 | PHYS DOC ---
Past History Past Medical History: No Pertinent History Past Surgical History: No Surgical History Additional Past Surgical Histo: D&C Alcohol Use: None Drug Use: None General Adult EDM: Chief Complaint: VOMITING IN HPI: HPI: Patient is a 25-year-old female who presents with nausea and vomiting. Floyd lozada's son and daughter have both been sick with nausea vomiting and diarrhea for the last couple of days. Mom states her symptoms started today. Denies fevers. Mom is also 11 weeks . G5, P2. Mom denies any abdominal pain or diarrhea. No chest pain or shortness of breath. G5, P2. Mom denies taking anything at home for nausea. Denies medical history. Review of Systems: Review of Systems: ROS At least 10 ROS systems have been reviewed and are negative except as documented in the HPI. General: Negative except as outlined in HPI above. Skin: Negative except as outlined in HPI above. HEENT: Negative except as outlined in HPI above. Neck: Negative except as outlined in HPI above. Respiratory: Negative except as outlined in HPI above.. Cardiovascular: Negative except as outlined in HPI above. Abdomen: Negative except as outlined in HPI above. : Negative except as outlined in HPI above. Back/MSK: Negative except as outlined in HPI above. Neuro: Negative except as outlined in HPI above. Psych: Negative except as outlined in HPI above. Current Medications: Current Meds: Current Medications Medications (Trade) Dose Ordered Sig/Soo Start Time Stop Time Status Last Admin Dose Admin Ondansetron HCl (Zofran Odt) 4 mg 1X ONCE 07/13/21 19:15 07/13/21 19:16 Allergies: Allergies: Allergies Coded Allergies Type Severity Reaction Last Updated Verified No Known Drug Allergies 03/13/19 No Physical Exam: PE: Constitutional: Well developed, well nourished, no acute distress, non-toxic appearance. [] HENT: bilateral external ears normal, oropharynx moist, no oral exudates, nose normal. [] Eyes: PERRLA, conjunctiva normal, no discharge. [] Neck: Normal range of motion, no tenderness, supple, no stridor. [] Cardiovascular:Heart rate regular rhythm, no murmur [] Lungs & Thorax: Bilateral breath sounds clear to auscultation [] Abdomen: Bowel sounds normal, soft, no tenderness, no masses, no pulsatile masses. [] Skin: Warm, dry, no erythema, no rash. [] Back: No tenderness, no CVA tenderness. [] Extremities: No tenderness, no cyanosis, no clubbing, ROM intact, no edema. [] Neurologic: Alert and oriented X 3, normal motor function, normal sensory function, no focal deficits noted. [] Psychologic: Affect normal, judgement normal, mood normal. [] Current Patient Data: Vital Signs: Vital Signs Date Time Temp Pulse Resp B/P (MAP) Pulse Ox O2 Delivery O2 Flow Rate FiO2 07/13/21 18:42 97.9 84 18 106/67 (80) 99 Room Air EKG: EKG: [] Radiology/Procedures: Radiology/Procedures: [] Heart Score: C/O Chest Pain: No Risk Factors: Risk Factors: DM, Current or recent (<one month) smoker, HTN, HLP, family history of CAD, obesity. Risk Scores: Score 0 - 3: 2.5% MACE over next 6 weeks - Discharge Home Score 4 - 6: 20.3% MACE over next 6 weeks - Admit for Clinical Observation Score 7 - 10: 72.7% MACE over next 6 weeks - Early Invasive Strategies Course & Med Decision Making: Course & Med Decision Making Pertinent Labs and Imaging studies reviewed. (See chart for details) [] 25-year-old female presents with nausea and vomiting. Patient is G5, P2. Patient's son and daughter are both been sick the last couple of days with nausea vomiting and diarrhea. Afebrile. Hemodynamically stable. Given Zofran while in the emergency room to help with symptoms. Advised patient to follow-up with OB if symptoms continue. Tylenol for fever. Make sure drinking plenty of fluids to avoid dehydration. Discussed return precautions. Patient verbalizes understanding of discharge instructions. Dragon Disclaimer: Dragon Disclaimer: This electronic medical record was generated, in whole or in part, using a voice recognition dictation system. Departure Departure: Impression: Primary Impression: Nausea vomiting and diarrhea Disposition: HOME / SELF CARE / HOMELESS Condition: STABLE Referrals: DAMIAN GERARD APRN (PCP) Patient Instructions: Nausea and Vomiting, [id number] Additional Instructions: You are seen emergency room for nausea/vomiting. You were given Zofran to help with symptoms. If you start running fevers you can take Tylenol. Make sure drinking plenty of fluids to help avoid dehydration. Please follow-up with your OB for further management. Return to emergency room for worsening symptoms or concerns. EMERGENCY DEPARTMENT GENERAL DISCHARGE INSTRUCTIONS Thank you for coming to [facility] (ED) today and trusting us with you care. We trust that you had a positivie experience in our Emergency Department. If you wish to speak to the department management, you may call the director at [phone]. YOUR FOLLOW UP INSTRUCTIONS ARE FOLLOWS: 1. Do you have a private Doctor? If you do not have a private doctor, please ask for a resource list of physicians or clinics that may be able to assist you with follow up care. 2. The Emergency Physician has interpreted your x-rays. The X-Ray specialist will also review them. If there is a change in the findings, you will be notified in 48 hours when at all possible. 3. A lab test or culture has been done, your results will be reviewed and you will be notified if you need a change in treatment. ADDITIONAL INSTRUCTIONS AND INFORMATION: 1. Your care today has been supervised by a physician who is specially trained in emergency care. Many problems require more than one evaluation for a complete diagnosis and treatment. We recommend that you schedule your follow up appointment as recommended to ensure complete treatment of you illness or injury. If you are unable to obtain follow up care and continue to have a problem, or if your condition worsens, we recommend that you return to the ED. 2. We are not able to safely determine your condition over the phone nor are we able to give sound medical advice over the phone. For these safety reasons, if you call for medical advice we will ask you to come to the ED for further evaluation. 3. If you have any questions regarding these discharge instructions please call the ED at [phone]. SAFETY INFORMATION: In the interest of safety, wellness, and injury prevention; we encourage you to wear your sealbelt, if you smoke; quite smoking, and we encourage family to use a protective helmet for bicycling and other sporting events that present an increased risk for head injury. IF YOUR SYMPTOMS WORSEN OR NEW SYMPTOMS DEVELOP, OR YOU HAVE CONCERNS ABOUT YOUR CONDITION; OR IF YOUR CONDITION WORSENS WHILE YOU ARE WAITING FOR YOUR FOLLOW UP APPOINTMENT; EITHER CONTACT YOUR PRIMARY CARE DOCTOR, THE PHYSICIAN WHOSE NAME AND NUMBER YOU WERE GIVEN, OR RETURN TO THE ED IMMEDIATELY. CANDACE DAMIAN APRN Jul 13, 2021 19:25
[2021-07-13] MEDS ORDERED: ONDANSETRON 4MG ODT 4TABLET STARTPACK. PO ONE (19:30)
[2021-07-13 19:42] VITALS: BP 108/68
== END 2021-07-13 19:48 | disposition home or self-care (01) ==
LOC: ER 18:40
DX: O21.9 Vomiting of pregnancy, unspecified (principal); R19.7 Diarrhea, unspecified; Z3A.11 11 weeks gestation of pregnancy
CPT/HCPCS: 99283; Q0162